=== PATIENT | male | born 1965 | race African-American/Black ===

== ENCOUNTER 2019-01-22 08:30 | Emergency (ER) | payer MEDICAID ==
[~2019-01-22] VITALS: Ht 182.9 cm; Wt 82.0 kg
[2019-01-22] MEDS: HYDROCODONE/ACETAMINOPHEN 5/325MG TABLET PO ONE (09:39)
[2019-01-22] MEDS: COLCHICINE 0.6MG TABLET PO ONE (09:46)
[2019-01-22] MEDS: KETOROLAC 60MG/2ML VIAL IM ONE (10:43)
[2019-01-22 10:45] VITALS: BP 144/92
[2019-01-22] MEDS: MORPHINE SULFATE 4 MG/ML CPJ (NOT FOR IM USE) IV ONE (10:45)
== END 2019-01-22 10:54 | disposition home or self-care (01) ==
LOC: ER 08:30
DX: M10.9 Gout, unspecified (principal); M25.561 Pain in right knee; Z98.890 Other specified postprocedural states
CPT/HCPCS: 96372; 99283; J1885; J2270

== ENCOUNTER 2019-05-25 13:06 | Emergency (ER) | payer MEDICAID ==
[~2019-05-25] VITALS: Ht 182.9 cm; Wt 90.0 kg
[2019-05-25] MEDS ORDERED: PREDNISONE 20MG TABLET PO ONE (15:30)
[2019-05-25] MEDS ORDERED: KETOROLAC 60MG/2ML VIAL IM ONE (15:30)
[2019-05-25 15:52] VITALS: BP 131/89
== END 2019-05-25 15:55 | disposition home or self-care (01) ==
LOC: ER 13:06
DX: M10.9 Gout, unspecified (principal)
CPT/HCPCS: 96372; 99283; J1885; J7512

== ENCOUNTER 2020-02-13 09:44 | Emergency (ER) | payer MEDICAID ==
[~2020-02-13] VITALS: Ht 182.9 cm; Wt 113.3 kg
[2020-02-13 11:26] LABS: BASOPHILS % 0.6 % (0.0-2.0); EOSINOPHILS % 0.5 % (0.0-5.0); HEMATOCRIT. 46.4 % (42.0-52.0); HEMOGLOBIN. 15.9 g/dL (14.0-18.0); LYMPHOCYTES % 40.3 % (20.0-50.0); MEAN CORPUSCULAR HEMOGLOBIN 32.8 pg (28.0-32.0); MEAN CORPUSCULAR VOLUME 95.4 fL (80.0-94.0); MEAN PLATELET VOLUME 8.8 fl (7.4-10.4); MONOCYTES % 11.6 % (2.0-8.0); PLATELET 143 x1000/uL (130-400); RED BLOOD CELL COUNT 4.86 mill/uL (4.7-6.1); RED CELL DISTRIBUTION WIDTH 13.7 % (11.6-14.6)
[2020-02-13 11:31] LABS: CHLORIDE 106 mEq/L (98-107)
[2020-02-13 13:06] VITALS: BP 148/76
== END 2020-02-13 13:11 | disposition left against medical advice (07) ==
LOC: ER 09:44 → CANBEDREQ 15:54
DX: J18.9 Pneumonia, unspecified organism (principal); I11.0 Hypertensive heart disease with heart failure; I50.9 Heart failure, unspecified; Z20.828 Contact with and (suspected) exposure to other viral communicable diseases
CPT/HCPCS: 36415; 71045; 80053; 83880; 84484; 85025; 87635; 93005; 99285

== ENCOUNTER 2020-10-11 14:03 | Emergency (ER) | payer MEDICAID ==
[~2020-10-11] VITALS: Ht 182.9 cm; Wt 115.0 kg
[2020-10-11 14:40] VITALS: BP 164/93
[2020-10-11] MEDS ORDERED: IBUP-2028 MT (15:33)
[2020-10-11] MEDS ORDERED: AMOX-494 MT (15:33)
== END 2020-10-11 15:50 | disposition home or self-care (01) ==
LOC: ER 14:08
DX: K12.2 Cellulitis and abscess of mouth (principal); I11.0 Hypertensive heart disease with heart failure; I50.9 Heart failure, unspecified; E11.9 Type 2 diabetes mellitus without complications
CPT/HCPCS: 99282

== ENCOUNTER 2020-12-30 09:30 | Emergency (ER) | payer MEDICAID ==
[~2020-12-30] VITALS: Ht 182.9 cm; Wt 113.0 kg
[~2020-12-30 09:30] MED LIST: AMOX-494 MT; IBUP-2028 MT
[2020-12-30] MEDS ORDERED: HYDROCODONE/ACETAMINOPHEN 5/325MG TABLET PO ONE (11:45)
[2020-12-30] MEDS ORDERED: COLC0.6C3 MT (11:52)
[2020-12-30 11:58] VITALS: BP 141/108
== END 2020-12-30 12:28 | disposition home or self-care (01) ==
LOC: ER 09:30
DX: M10.061 Idiopathic gout, right knee (principal); E11.9 Type 2 diabetes mellitus without complications; I11.0 Hypertensive heart disease with heart failure; I50.9 Heart failure, unspecified; J43.9 Emphysema, unspecified
CPT/HCPCS: 99283